=== PATIENT | male | born 1975 | race Caucasian/White ===

== ENCOUNTER 2020-06-26 10:30 | Outpatient (REF) | payer OTHER, SELFPAY ==
[2020-06-26 12:02] LABS: Estimated Average Glucose 203 mg/dL; Hemoglobin A1c % 8.7 %
[2020-06-26 12:20] LABS: Alanine Aminotransferase 31 U/L (0-40); Albumin Level 4.3 g/dL (3.5-5.0); Alkaline Phosphatase 74 U/L (39-117); Anion Gap 16 (12-20); Aspartate Amino Transferase 22 U/L (5-37); Bilirubin Total 1.2 mg/dL (0.0-1.0); Blood Urea Nitrogen 15 mg/dL (9-16); Calcium 9.1 mg/dL (8.4-10.2); Carbon Dioxide 30 mmol/L (22-29); Chloride 98 mmol/L (96-108); Estimated Glomerular Filt Rate > 60; Glucose Random 180 mg/dL (60-115); Potassium 4.5 mmol/l (3.3-5.1); Sodium 139 mmol/L (135-145); Total Protein 7.8 g/dL (6.5-8.0)
[2020-06-26 12:40] LABS: Vitamin D 25-OH Total 26.7 ng/mL (>30)
== END 2020-06-26 10:31 | disposition home or self-care (01) ==
LOC: HO.LAB 10:30
PROVIDERS: PCP Internal Medicine; Visit Provider Internal Medicine
DX: E11.65 Type 2 diabetes mellitus with hyperglycemia (principal); E78.5 Hyperlipidemia, unspecified; I10 Essential (primary) hypertension; E55.9 Vitamin D deficiency, unspecified; Z79.4 Long term (current) use of insulin
CPT/HCPCS: 80053; 82306; 83036

== ENCOUNTER → 2020-07-03 15:11 | Outpatient (BNVA) | payer OTHER, SELFPAY | PROVIDERS: PCP Internal Medicine; Visit Provider Internal Medicine Cardiovascular Disease | DX: Z76.89 Persons encountering health services in other specified circumstances (principal) ==

== ENCOUNTER 2020-07-08 14:08 | Outpatient (RCR) | payer OTHER, SELFPAY | END 2020-08-05 14:53 | disposition home or self-care (01) | LOC: HO.WCC 14:08 | PROVIDERS: Visit Provider Physician Assistant | DX: Z09 Encounter for follow-up examination after completed treatment for conditions other than malignant neoplasm (principal); E11.51 Type 2 diabetes mellitus with diabetic peripheral angiopathy without gangrene; E11.40 Type 2 diabetes mellitus with diabetic neuropathy, unspecified; I70.202 Unspecified atherosclerosis of native arteries of extremities, left leg; I87.2 Venous insufficiency (chronic) (peripheral); I10 Essential (primary) hypertension; I25.10 Atherosclerotic heart disease of native coronary artery without angina pectoris; Z87.891 Personal history of nicotine dependence; Z95.1 Presence of aortocoronary bypass graft | CPT/HCPCS: 99212; 99213; 99214 ==

== ENCOUNTER 2020-07-16 12:02 | Outpatient (REF) | payer OTHER, SELFPAY | END 2020-07-16 12:03 | disposition home or self-care (01) | LOC: HO.LAB 12:02 | PROVIDERS: Visit Provider Internal Medicine | DX: Z20.828 Contact with and (suspected) exposure to other viral communicable diseases (principal) | CPT/HCPCS: C9803; U0003 ==

== ENCOUNTER 2020-07-24 13:01 | Outpatient (REF) | payer OTHER, SELFPAY ==
--- NOTE | 2020-07-24 | US_ITS ---
EXAMINATION: DUPLEX DOPPLER ARTERIAL EVALUATION OF THE LEFT LOWER EXTREMITY CLINICAL INFORMATION: Left ankle ulceration COMPARISON: None TECHNIQUE: Real-time ultrasound and Doppler techniques (integrating B-mode 2D vascular images, Doppler spectral analysis and color flow Doppler imaging) were utilized to interrogate the left lower extremity. FINDINGS: Left common femoral artery has a triphasic waveform with peak systolic velocity of 111 cm/s. The proximal superficial femoral artery has a triphasic waveform with peak systolic velocity of 96 cm/s. Left profunda femoral artery has a triphasic waveform with peak systolic velocity of 79 cm/s. Mid superficial femoral artery has a triphasic waveform with peak systolic velocity of 100 cm/s. Distal superficial femoral artery has a triphasic waveform with peak systolic velocity of 82 cm/s. Popliteal artery has a triphasic waveform with peak systolic velocity of 84 cm/s. Peroneal artery has a triphasic waveform with peak systolic velocity of 63 cm/s. Distal posterior tibial artery has a triphasic waveform with peak systolic velocity of 109 cm/s. US/US arterial duplex LE LT IMPRESSION: Triphasic waveform throughout the left lower extremity without evidence of hemodynamically significant stenosis.
== END 2020-07-24 13:02 | disposition home or self-care (01) ==
LOC: HO.US 13:01
PROVIDERS: PCP Internal Medicine; Visit Provider Physician Assistant
DX: I70.243 Atherosclerosis of native arteries of left leg with ulceration of ankle (principal)
CPT/HCPCS: 93926

== ENCOUNTER 2020-08-18 13:03 | Outpatient (REF) | payer OTHER, SELFPAY ==
--- NOTE | 2020-08-18 | US_ITS ---
EXAMINATION: RIGHT and LEFT LOWER EXTREMITY VENOUS ULTRASOUND (Reflux Exam) CLINICAL INDICATION: Venous insufficiency. History of bilateral vein stripping. COMPARISON: None. TECHNIQUE: Color flow triplex imaging and compression Doppler was performed to evaluate both the deep and the superficial systems bilaterally. To evaluate the superficial system, the examination was performed in the upright position. Color-flow Doppler ultrasound and compression ultrasound were utilized. In addition, maneuvers were utilized to demonstrate reflux. FINDINGS: 1. DEEP VENOUS ULTRASOUND OF THE RIGHT LOWER EXTREMITY: Respiratory variation, normal compression and augmented flow are noted in the right common femoral vein as well as the right popliteal vein and there is no evidence of deep venous thrombosis at these locations. There is no evidence of reflux in the deep system in either the common femoral vein or the popliteal vein. There is no evidence of a Valverde's cyst. 2. SUPERFICIAL ULTRASOUND WITH DOPPLER OF RIGHT LOWER EXTREMITY: The right great saphenous vein at the saphenofemoral junction measures 8 mm, at the mid thigh 4 mm, at mid calf 2 mm and at the ankle measures 3 mm. The remainder of the right greater saphenous vein is not visualized. There is no reflux demonstrated in the right great saphenous vein. There is an accessory medial greater saphenous vein that measures 5 mm and does not demonstrate reflux. The right small saphenous vein measures 3 mm and shows no reflux. There is a chief fishery division in the mid calf that measures 2 mm and does not demonstrate reflux. There is a varicosity in the proximal thigh that measures 4 mm and does not demonstrate reflux. 3. DEEP VENOUS ULTRASOUND OF THE LEFT LOWER EXTREMITY: Respiratory variation, normal compression and augmented flow are noted in the left common femoral vein as well as the left popliteal vein and there is no evidence of deep venous thrombosis at these locations. There is no evidence of reflux in the deep system in either the common femoral vein or the popliteal vein. . There is no evidence of a Valverde's cyst. 4. SUPERFICIAL ULTRASOUND WITH DOPPLER OF LEFT LOWER EXTREMITY: Left great saphenous vein at the saphenofemoral junction measures 8 mm, at the mid thigh 5 mm, [id number] 3 mm, at mid calf 2 mm and at the ankle measures 2 mm. There is left greater saphenous vein reflux measuring 1.5 seconds at the mid calf. The left small saphenous vein measures 2-3 mm and shows no reflux. There is a chief fishery division in the mid thigh that measures 2 mm and does not demonstrate reflux. There is a chief fishery division in the proximal calf that measures 2 mm and demonstrates 2.8 seconds reflux. There is a varicosity in the proximal thigh that measures 3 mm and does not demonstrate reflux. There is a varicosity in the proximal calf that measures 5 mm and does not demonstrate reflux. US/US venous duplex LE BI IMPRESSION: 1. No evidence of reflux or thrombus in the common femoral veins or popliteal veins bilaterally. 2. Patient is post bilateral vein stripping. The greater saphenous vein is not visualized from the mid thigh to below the knee bilaterally. There is reflux in the left greater saphenous vein measuring 1.5 seconds in the mid calf. No right greater saphenous vein reflux seen. .
== END 2020-08-18 13:04 | disposition home or self-care (01) ==
LOC: HO.US 13:03
PROVIDERS: PCP Physician Assistant; Visit Provider Physician Assistant
DX: I87.2 Venous insufficiency (chronic) (peripheral) (principal)
CPT/HCPCS: 93970

== ENCOUNTER → 2020-09-25 13:07 | Outpatient (BNVA) | payer OTHER, SELFPAY | PROVIDERS: PCP Physician Assistant; Visit Provider Surgery Vascular Surgery ==

== ENCOUNTER 2020-09-30 07:37 | Outpatient (REF) | payer OTHER, SELFPAY ==
--- NOTE | ~2020-09-30 | XR_ITS ---
EXAMINATION: STERNUM AND LEFT SHOULDER X-RAYS CLINICAL INFORMATION: Pain COMPARISON: Previous chest x-ray May 2019 TECHNIQUE: 2 views of the sternum and 3 views of the left shoulder FINDINGS: Sternum: There are new plates and screws and cerclage wires in the sternum. Orthopedic hardware appears intact. This is new from previous chest x-ray May 2019. No fracture, dislocation or sternal lesion is appreciated by chest x-ray. There is question of soft tissue thickening over the inferior sternum. Left shoulder: Bone alignment is normal. No fracture or dislocation is seen. There may be a small subchondral cyst seen in the glenoid. The glenohumeral joint is otherwise normal. There is arthritis at the acromioclavicular joint with joint space narrowing and osteophyte formation. There may be faint soft tissue calcification adjacent to the proximal humerus/greater tuberosity region. XR/XR shoulder LT min 2V IMPRESSION: Sternum: New plates and screws and cerclage wires in the sternum. Question superficial soft tissue swelling overlying the inferior sternum. Left shoulder: Arthritis at the acromioclavicular joint. Subchondral cystic changes in the glenoid. Faint soft tissue calcification adjacent to the greater tuberosity.
--- NOTE | ~2020-09-30 | XR_ITS ---
EXAMINATION: STERNUM AND LEFT SHOULDER X-RAYS CLINICAL INFORMATION: Pain COMPARISON: Previous chest x-ray May 2019 TECHNIQUE: 2 views of the sternum and 3 views of the left shoulder FINDINGS: Sternum: There are new plates and screws and cerclage wires in the sternum. Orthopedic hardware appears intact. This is new from previous chest x-ray May 2019. No fracture, dislocation or sternal lesion is appreciated by chest x-ray. There is question of soft tissue thickening over the inferior sternum. Left shoulder: Bone alignment is normal. No fracture or dislocation is seen. There may be a small subchondral cyst seen in the glenoid. The glenohumeral joint is otherwise normal. There is arthritis at the acromioclavicular joint with joint space narrowing and osteophyte formation. There may be faint soft tissue calcification adjacent to the proximal humerus/greater tuberosity region. XR/XR sternum min 2V IMPRESSION: Sternum: New plates and screws and cerclage wires in the sternum. Question superficial soft tissue swelling overlying the inferior sternum. Left shoulder: Arthritis at the acromioclavicular joint. Subchondral cystic changes in the glenoid. Faint soft tissue calcification adjacent to the greater tuberosity.
[2020-09-30 08:04] LABS: Hematocrit 42.1 % (42-52); Hemoglobin 13.6 g/dl (14.0-18.0); Mean Corpuscular HGB Conc 32.3 g/dl (31.0-36.0); Mean Corpuscular Hemoglobin 27.5 pg (27.0-33.0); Mean Corpuscular Volume 85.2 fL (80-98); Mean Platelet Volume 10.1 fL (9.4-12.4); Platelet Count 330 X10*3/uL (160-400); Red Blood Count 4.94 X10*6/uL (4.60-5.80); Red Cell Distribution Width 13.6 % (11.0-16.0); White Blood Count 13.6 X10*3/uL (4.8-10.8)
[2020-09-30 08:08] LABS: Estimated Average Glucose 229 mg/dL; Hemoglobin A1c % 9.6 %
[2020-09-30 08:35] LABS: Alanine Aminotransferase 20 U/L (0-40); Albumin Level 4.3 g/dL (3.5-5.0); Alkaline Phosphatase 88 U/L (39-117); Anion Gap 14 (12-20); Aspartate Amino Transferase 14 U/L (5-37); Bilirubin Total 1.4 mg/dL (0.0-1.0); Blood Urea Nitrogen 15 mg/dL (9-16); Calcium 9.4 mg/dL (8.4-10.2); Carbon Dioxide 31 mmol/L (22-29); Chloride 99 mmol/L (96-108); Cholesterol 130 mg/dL; Estimated Glomerular Filt Rate > 60; Glucose Fasting 188 mg/dL (60-99); HDL Cholesterol 33 mg/dL; LDL Cholesterol Calculated 79 mg/dl; Potassium 4.5 mmol/L (3.3-5.1); Sodium 139 mmol/L (135-145); Total Protein 7.7 g/dL (6.5-8.0); Triglycerides 93 mg/dL
[2020-09-30 08:48] LABS: Prostate Specific Antigen Scr 0.17 ng/mL (<0.05-4.0)
[2020-09-30 08:49] LABS: Vitamin D 25-OH Total 21.5 ng/mL (>30)
== END 2020-09-30 07:38 | disposition home or self-care (01) ==
LOC: HO.LAB 07:37
PROVIDERS: Internal Medicine; PCP Physician Assistant; Visit Provider Physician Assistant
DX: R07.89 Other chest pain (principal); I10 Essential (primary) hypertension; E11.65 Type 2 diabetes mellitus with hyperglycemia; E55.9 Vitamin D deficiency, unspecified; M25.512 Pain in left shoulder; M77.8 Other enthesopathies, not elsewhere classified; Z12.5 Encounter for screening for malignant neoplasm of prostate; Z79.4 Long term (current) use of insulin
CPT/HCPCS: 36415; 71120; 73030; 80053; 80061; 82306; 83036; 84153; 84443; 85027

== ENCOUNTER → 2020-10-02 13:43 | Outpatient (BNVA) | payer OTHER, SELFPAY | PROVIDERS: PCP Physician Assistant; Visit Provider Internal Medicine | DX: E11.65 Type 2 diabetes mellitus with hyperglycemia (principal); E78.5 Hyperlipidemia, unspecified; E55.9 Vitamin D deficiency, unspecified; R17 Unspecified jaundice; I10 Essential (primary) hypertension; Z79.4 Long term (current) use of insulin; Z71.3 Dietary counseling and surveillance | CPT/HCPCS: 82947 ==

== ENCOUNTER 2020-10-09 14:13 | Outpatient (REF) | payer OTHER, SELFPAY ==
--- NOTE | ~2020-10-09 | CT_ITS ---
EXAMINATION: CT LOWER LEG WITH CONTRAST, LEFT CLINICAL INFORMATION: Nonpressure chronic ulcer of the unspecified lower leg. COMPARISON: Lower extremity venous ultrasound dated 08/18/2020. TECHNIQUE: Contiguous axial CT images of the left lower leg were obtained following the IV administration of 85 mL Omnipaque 350 contrast. Sagittal and coronal reformats were provided and reviewed. DLP: 378 mGy-cm FINDINGS: There are atherosclerotic calcifications throughout the tibial trunk and posterior tibial artery which normally opacifies with contrast. Additional right lower extremity arterial vessels appear opacified with contrast without evidence of occlusion. No abnormal soft tissue mass or fluid collection. Mild left lower extremity muscle atrophy without acute muscle or tendon injury. Evaluation limited on CT examination. No acute fracture or dislocation. No significant joint space narrowing or marginal osteophytes. No concerning lytic or blastic osseous lesion. CT/CT lower leg LT w con IMPRESSION: 1. Atherosclerotic calcifications throughout the tibial trunk and posterior tibial artery. The left lower extremity arterial structures normally opacified with contrast. 2. No abnormal soft tissue mass or fluid collection. 3. Mild muscle atrophy. 4. No acute osseous abnormality.
== END 2020-10-09 14:14 | disposition home or self-care (01) ==
LOC: HO.CT 14:13
PROVIDERS: Visit Provider Surgery Vascular Surgery
DX: L97.929 Non-pressure chronic ulcer of unspecified part of left lower leg with unspecified severity (principal)
CPT/HCPCS: 73701; Q9967

== ENCOUNTER → 2020-10-16 14:45 | Outpatient (BNVA) | payer OTHER, SELFPAY | PROVIDERS: PCP Physician Assistant; Visit Provider Surgery Vascular Surgery ==

== ENCOUNTER → 2020-10-30 12:56 | Outpatient (BNVA) | payer OTHER, SELFPAY | PROVIDERS: PCP Physician Assistant; Visit Provider Internal Medicine Cardiovascular Disease ==

== ENCOUNTER 2020-11-10 06:06 | Day surgery (SDC) | payer OTHER, SELFPAY ==
[2020-11-05 12:49] VITALS: BMI 45.1
[2020-11-10 06:24] VITALS: BP 101/68; PULSE 103; RESP 16; TEMP 36.7; O2SAT 98
[2020-11-10] MEDS: Lactated Ringers 1,000 ML 100 ML IVCONT (06:42)
[2020-11-10 06:44] LABS: Glucose, Whole Blood 102 mg/dL (60-115)
--- NOTE | 2020-11-10 07:48 | PC.NURSE ---
text md tolliver for scheduled surgery.
--- NOTE | 2020-11-10 07:49 | P.CONAN_ITS ---
HPI - Anesthesia Eval Consult details Narrative: 45 yo male patient here for debridement of skin left lower leg PMFSH Active Problems Active Problems: All Active Problems (Updated 10/02/20 @ 14:01 by Lisa Tanner DO) Lower extremity ulceration (Acute) CAD (coronary artery disease) (Acute) Left shoulder tendonitis (Acute) Non-healing wound of left lower extremity (Acute) Sternal pain (Acute) Elevated bilirubin (Acute) Decubitus ulcer of leg, stage 3 (Acute) Vitamin D deficiency (Acute) HLD (hyperlipidemia) (Acute) HTN (hypertension) (Acute) T2DM (type 2 diabetes mellitus) (Acute) Past Medical History Medical History (Updated 11/10/20 @ 07:54 by Cheryl Alcala) CAD (coronary artery disease) Decubitus ulcer of leg, stage 3 Elevated bilirubin HLD (hyperlipidemia) HTN (hypertension) [place]ON[place] on CPAP T2DM (type 2 diabetes mellitus) Vitamin D deficiency Family History Family History Father Diabetes CVD (cardiovascular disease) Mother CVD (cardiovascular disease) Diabetes Family history of problems with anesthesia: No Surgical History Surgical History Hx of cardiac catheterization Hx of coronary artery bypass graft History of Problems with Anesthesia: No Social History Social History Alcohol intake: current Alcohol intake frequency: holidays/special occasions only Smoking Status: Current some day smoker Tobacco Type: Cigarette Advance Directives Information Provided: No Current occupational status: employed Current occupation: [employer] Meds Allergies Allergy/AdvReac Type Severity Reaction Status Date / Time No Known Allergies Allergy Verified 10/16/20 14:45 [No Known Allergies*] Home Medications Medication Instructions Recorded Confirmed Last Taken Type aspirin 81 mg tablet,delayed 81 mg PO DAILY 06/26/20 11/05/20 11/09/20 History release atorvastatin 80 mg tablet 80 mg PO DAILY 06/26/20 11/05/20 Unknown History flash glucose scanning reader #1 ea 06/26/20 10/02/20 Unknown History flash glucose sensor #1 ea 06/26/20 10/02/20 Unknown History lisinopril 5 mg tablet 5 mg PO DAILY 06/26/20 11/05/20 Unknown History pen needle, diabetic 29 gauge x #100 ea 06/26/20 10/02/20 Unknown History 1/2 carvedilol 25 mg tablet 25 mg PO BID 07/03/20 11/05/20 11/10/20 05:00 History Exam Exam Date and Time: November 10, 2020 0749 Height,Weight and Vital Signs: Height 5 ft 11 in Weight 146.964 kg Last Vital Signs Temp 98.0 F 11/10/20 06:24 Pulse 103 H 11/10/20 06:24 Resp 16 11/10/20 06:24 BP 101/68 11/10/20 06:24 Pulse Ox 98 11/10/20 06:24 Pertinent Lab Results Pertinent Lab Results: Laboratory Tests 11/10/20 06:39 POC Glucose 102 Airway Mallampati Class: II TM Dist: >3cm Neck ROM: Full (Thick neck) Partial: Lower Heart: RRR Lungs: CTAB Assessment and Plan Assessment Anesthesia Assessment: Anesthesia Plan Discussed and Chart Reviewed Final Anesthetic Review NPO: Yes ASA Class: III Final Preanesthetic Review: No Changes in Pt Med Stat, Meds/Allgs Chart Reviewed, Consent Obtained/Reviewed and Anes Risks/Benef Reviewed Patient Risk: Intermediate Procedure Risk: Low Assessment/Block/Sedation in SS: Assess/Block/Sedation-SS Anesthetic Plan Anesthetic Plan: MAC: Disposition: Standard PACU
[2020-11-10 08:45] VITALS: BP 96/60; PULSE 93; RESP 12; TEMP 36.3; O2SAT 97
--- NOTE | 2020-11-10 08:48 | MHC.SHP ---
Pre-Procedural Eval Section B Chief Complaint: Left Lower Leg Open Wound Allergies: Allergies Allergy/AdvReac Type Severity Reaction Status Date / Time No Known Allergies Allergy Verified 10/16/20 14:45 [No Known Allergies*] Plan I have reviewed the history and physical and performed a pertinent physical examination on my patient. No changes have occurred unless specified.
--- NOTE | 2020-11-10 08:48 | W.PM.OPN ---
Operative Note Operative Note Date of Service: 11/10/20 Narrative: Operative note by [facility] Preoperative diagnosis: Nonhealing left leg ulcers x2 Postoperative diagnosis: Same Procedure: 1. Excisional debridement into muscle 2. Application of epi Fix x2 Surgeon:Taras Tam M.D. Insurance Office Manager: Mamie Anesthesia: Local with sedation Specimens: 1 Drains: None Estimated blood loss: Minimal Indications: Morbidly obese 45-year-old diabetic gentleman with nonhealing left lower extremity ulcers x2. It has been quite painful and sensitive for him to be debrided in the office. Of note this was the site of vein harvest for CABG for him. He now presents for operative intervention The patient has signed the informed consent after reviewing risks, complications, benefits, and alternatives previously discussed with the patient in my office. The patient was given the opportunity to ask any additional questions or voice any concerns. All questions were answered to the patient's satisfaction. Procedure in detail: Patient was brought to the operating room prior to which timeout was called for patient identification and site verification. Left leg was prepped and draped in the standard surgical fashion. Once this was done the area was infiltrated with local lidocaine and Marcaine 50 50 mix. Once this was accomplished using pickups and 15 blade excisional debridement was undertaken in to muscle. First we addressed the pretibial 1 just below the knee which was 5 cm x 3.5 cm x 0.1 cm. Once it was debrided it was 5.5 x 4 x 0.3 cm. Skin of fibrinous material and necrotic tissue was removed off the tissue bed into muscle. Hemostasis was achieved with electrocautery. Once this was accomplished a piece of epi Fix 2 x 3 cm was placed into the wound bed. Next we turned our attention to the ulcer just above the medial malleolus. This was a 3 x 2 cm x 0.1 cm ulcer. In a similar fashion excisional debridement was undertaken into muscle. Hemostasis was achieved with electrocautery. Post debridement measurement was 3.2 x 2.2 x 0.3 cm. Again a piece of epi Fix was placed into the wound bed. Once this was accomplished 0 form in a sterile dressing were applied. Along with a David wrap from foot to just below knee. At the end of the case sponge us been counts were correct. Patient tolerated the procedure well. Returned to recovery with stable vitals. This note is constructed using voice recognition software. While every effort has been made to ensure accuracy, cake knocker errors may have been included. Thank you for allowing me to participate in the care of your patient. Yours sincerely, Taras Tam MD, FACS, R.P.V.I.
[2020-11-10 08:50] VITALS: BP 102/61; PULSE 89; RESP 20; O2SAT 98
[2020-11-10] MEDS: Acetaminophen 325 MG TABLET 650 MG PO (08:50)
[2020-11-10] MEDS: oxyCODONE HCl Immed Release 5 MG TABLET PO (08:50)
[2020-11-10] MEDS: fentaNYL citrate/PF 100 MCG/2 ML VIAL 25 MCG IVPUSH ×2 (08:50→08:55)
[2020-11-10 08:55] VITALS: BP 92/68; PULSE 87; RESP 18; O2SAT 94
[2020-11-10 09:00] VITALS: BP 109/63; PULSE 86; RESP 16; O2SAT 97
[2020-11-10 09:15] VITALS: BP 105/75; PULSE 88; RESP 16; TEMP 36.3; O2SAT 98
== END 2020-11-10 10:20 | disposition home or self-care (01) ==
PROVIDERS: PCP Physician Assistant; Visit Provider Surgery Vascular Surgery
PROC: (CPT 11043; principal; 2020-11-10 07:30)
DX: E11.622 Type 2 diabetes mellitus with other skin ulcer (principal); L97.823 Non-pressure chronic ulcer of other part of left lower leg with necrosis of muscle; L97.329 Non-pressure chronic ulcer of left ankle with unspecified severity; E11.52 Type 2 diabetes mellitus with diabetic peripheral angiopathy with gangrene; Z79.4 Long term (current) use of insulin; E66.01 Morbid (severe) obesity due to excess calories; Z68.42 Body mass index [BMI] 45.0-49.9, adult; E78.5 Hyperlipidemia, unspecified; G47.33 Obstructive sleep apnea (adult) (pediatric); I25.10 Atherosclerotic heart disease of native coronary artery without angina pectoris; I10 Essential (primary) hypertension; Z79.82 Long term (current) use of aspirin; Z79.899 Other long term (current) drug therapy; F17.210 Nicotine dependence, cigarettes, uncomplicated
CPT/HCPCS: 11043; 82947; 88304; J0690; J2250; J2405; J3010; Q4186

== ENCOUNTER → 2020-11-13 14:57 | Outpatient (BNVA) | payer OTHER, SELFPAY | PROVIDERS: PCP Physician Assistant; Referring Provider Internal Medicine; Visit Provider Physician Assistant ==

== ENCOUNTER → 2020-11-25 15:10 | Outpatient (BNVA) | payer OTHER, SELFPAY | PROVIDERS: PCP Physician Assistant; Visit Provider Surgery Vascular Surgery ==

== ENCOUNTER 2020-11-26 16:32 | Outpatient (REF) | payer OTHER, SELFPAY ==
[2020-11-26 18:00] LABS: Glucose Urine UA NEG (NEG); Leukocyte Esterase Urine 2+ (NEG); Nitrite Urine POS (NEG); PH 5.5 (5.0-8.0); Specific Gravity - Urine 1.025 (1.005-1.025); UACC Culture Trigger YES; Urine Blood TRACE (NEG); Urine Ketones NEG (NEG); Urine Protein NEG (NEG-TRACE)
[2020-11-26 18:02] LABS: Appearance Urine HAZY; Color Urine YELLOW
[2020-11-26 18:11] LABS: Bacteria Urine 2+ /LPF; Sperm Urine NOTED; Squamous Epithelial Cell Urine 1+ /LPF
== END 2020-11-26 16:33 | disposition home or self-care (01) ==
LOC: HO.LAB 16:32
PROVIDERS: PCP Physician Assistant; Visit Provider Physician Assistant
DX: R30.0 Dysuria (principal)
CPT/HCPCS: 81001; 81003; 87086; 87088; 87186

== ENCOUNTER 2020-12-01 13:59 | Outpatient (RCR) | payer OTHER, SELFPAY | END 2021-01-21 11:41 | disposition home or self-care (01) | LOC: HO.WCC 13:59 | PROVIDERS: Visit Provider Physician Assistant | DX: E11.621 Type 2 diabetes mellitus with foot ulcer (principal); L97.322 Non-pressure chronic ulcer of left ankle with fat layer exposed; L97.822 Non-pressure chronic ulcer of other part of left lower leg with fat layer exposed; I87.312 Chronic venous hypertension (idiopathic) with ulcer of left lower extremity; E11.622 Type 2 diabetes mellitus with other skin ulcer; E11.40 Type 2 diabetes mellitus with diabetic neuropathy, unspecified; Z95.1 Presence of aortocoronary bypass graft; Z87.891 Personal history of nicotine dependence | CPT/HCPCS: 11042; 11045 ==

== ENCOUNTER → 2020-12-01 14:42 | Outpatient (BNVA) | payer OTHER, SELFPAY | PROVIDERS: PCP Physician Assistant; Visit Provider Internal Medicine ==

== ENCOUNTER 2021-01-06 17:46 | Outpatient (REF) | payer OTHER, SELFPAY | END 2021-01-06 17:47 | disposition home or self-care (01) | LOC: HO.LAB 17:46 | PROVIDERS: Visit Provider Nurse Practitioner Family | DX: R82.90 Unspecified abnormal findings in urine (principal); R50.9 Fever, unspecified | CPT/HCPCS: 87086; 87088; 87186 ==

== ENCOUNTER 2021-06-17 09:11 | Outpatient (REF) | payer OTHER, SELFPAY ==
[2021-06-17 10:15] LABS: Hematocrit 39.4 % (42.0-52.0); Hemoglobin 12.6 g/dl (14.0-18.0); Mean Corpuscular Hemoglobin 28.3 pg (27.0-33.0); Mean Corpuscular Volume 88.5 fL (80.0-98.0); Mean Platelet Volume 10.4 fL (9.4-12.4); Platelet Count 276 X10*3/uL (160-400); Red Blood Count 4.45 X10*6/uL (4.60-5.80); Red Cell Distribution Width 14.3 % (11.0-16.0); White Blood Count 10.2 X10*3/uL (4.8-10.8)
[2021-06-17 10:29] LABS: Estimated Average Glucose 240 mg/dL
[2021-06-17 10:41] LABS: Bilirubin Direct 0.4 mg/dL (0.0-0.5); Microalbum/Creatinine Ratio Ur 3.7 ug/mg cr
[2021-06-17 10:49] LABS: Alanine Aminotransferase 28 U/L (0-40); Albumin Level 3.9 g/dL (3.5-5.0); Alkaline Phosphatase 52 U/L (39-117); Anion Gap 12 (12-20); Aspartate Amino Transferase 16 U/L (5-37); Bilirubin Total 1.2 mg/dL (0.0-1.0); Blood Urea Nitrogen 17 mg/dL (9-16); Calcium 9.5 mg/dL (8.4-10.2); Carbon Dioxide 30 mmol/L (22-29); Chloride 102 mmol/L (96-108); Cholesterol 252 mg/dL; Estimated Glomerular Filt Rate > 60; Glucose Fasting 150 mg/dL (60-99); HDL Cholesterol 42 mg/dL; LDL Cholesterol Calculated 167 mg/dl; Potassium 4.4 mmol/L (3.3-5.1); Sodium 140 mmol/L (135-145); Triglycerides 219 mg/dL
[2021-06-17 11:01] LABS: TSH reflex Free T4 1.43 uIU/mL (0.32-4.0)
[2021-06-17 11:06] LABS: HBS Num1 0.03 mIU/mL (0-7.99); ~HepC Num1 0.07 S/CO (0.00-0.79); ~Hepatitis B Surface Antibody NONREACTIVE (Nonreactive); ~Hepatitis C Antibody Nonreactive (Nonreactive)
[2021-06-17 11:21] LABS: HBc Num1 0.07 S/CO (0.00-0.79); HBsAGNum1 0.22 S/CO (0.00-0.99); Hepatitis A Antibody IgM 0.17 Index (0-0.79); Hepatitis B Core Antibody Nonreactive (Nonreactive); Hepatitis B Surface Antigen Negative (Negative); ~Hepatitis A Antibody IgM Nonreactive (Nonreactive)
== END 2021-06-17 09:12 | disposition home or self-care (01) ==
LOC: HO.LAB 09:11
PROVIDERS: Internal Medicine; Physician Assistant; PCP Physician Assistant; Visit Provider Physician Assistant
DX: I25.10 Atherosclerotic heart disease of native coronary artery without angina pectoris (principal); R17 Unspecified jaundice; R79.89 Other specified abnormal findings of blood chemistry; E11.65 Type 2 diabetes mellitus with hyperglycemia; Z79.4 Long term (current) use of insulin
CPT/HCPCS: 36415; 80053; 80061; 82043; 82248; 83036; 84443; 85027; 86704; 86706; 86709; 86803; 87340

== ENCOUNTER → 2021-08-10 10:45 | Outpatient (BNVA) | payer OTHER, SELFPAY | PROVIDERS: PCP Physician Assistant; Visit Provider Internal Medicine | DX: E11.65 Type 2 diabetes mellitus with hyperglycemia (principal); Z79.4 Long term (current) use of insulin; Z79.84 Long term (current) use of oral hypoglycemic drugs | CPT/HCPCS: 82947 ==

== ENCOUNTER 2021-08-28 09:45 | Outpatient (REF) | payer OTHER, SELFPAY ==
[2021-08-28 10:28] LABS: Hematocrit 36.8 % (42.0-52.0); Mean Corpuscular HGB Conc 32.6 g/dl (31.0-36.0); Mean Corpuscular Hemoglobin 28.7 pg (27.0-33.0); Mean Platelet Volume 10.1 fL (9.4-12.4); Platelet Count 360 X10*3/uL (160-400); Red Blood Count 4.18 X10*6/uL (4.60-5.80); Red Cell Distribution Width 12.9 % (11.0-16.0); White Blood Count 9.8 X10*3/uL (4.8-10.8)
[2021-08-28 10:35] LABS: Estimated Average Glucose 212 mg/dL
[2021-08-28 11:01] LABS: Alanine Aminotransferase 35 U/L (0-40); Albumin Level 4.3 g/dL (3.5-5.0); Alkaline Phosphatase 57 U/L (39-117); Anion Gap 11 (12-20); Aspartate Amino Transferase 22 U/L (5-37); Bilirubin Total 0.8 mg/dL (0.0-1.0); Blood Urea Nitrogen 14 mg/dL (9-16); Calcium 9.7 mg/dL (8.4-10.2); Carbon Dioxide 30 mmol/L (22-29); Chloride 103 mmol/L (96-108); Cholesterol 104 mg/dL; Estimated Glomerular Filt Rate > 60; Glucose Fasting 166 mg/dL (60-99); HDL Cholesterol 31 mg/dL; LDL Cholesterol Calculated 59 mg/dl; Potassium 4.5 mmol/L (3.3-5.1); Sodium 139 mmol/L (135-145); Total Protein 7.4 g/dL (6.5-8.0); Triglycerides 73 mg/dL
[2021-08-28 11:22] LABS: Prostate Specific Antigen Scr 0.54 ng/mL (<0.05-4.0)
[2021-08-28 13:18] LABS: Creatinine Urine 217.46 mg/dL; Microalbum/Creatinine Ratio Ur 5.9 ug/mg cr
== END 2021-08-28 09:46 | disposition home or self-care (01) ==
LOC: HO.LAB 09:45
PROVIDERS: Absent Provider Internal Medicine; PCP Physician Assistant; Visit Provider Physician Assistant
DX: E11.65 Type 2 diabetes mellitus with hyperglycemia (principal); E78.5 Hyperlipidemia, unspecified; I10 Essential (primary) hypertension; Z79.4 Long term (current) use of insulin; Z12.5 Encounter for screening for malignant neoplasm of prostate
CPT/HCPCS: 36415; 80053; 80061; 82043; 83036; 84153; 85027

== ENCOUNTER → 2021-09-02 09:49 | Outpatient (BNVA) | payer OTHER, SELFPAY | PROVIDERS: PCP Physician Assistant; Visit Provider Internal Medicine | DX: E11.65 Type 2 diabetes mellitus with hyperglycemia (principal); E78.5 Hyperlipidemia, unspecified; E55.9 Vitamin D deficiency, unspecified; L97.929 Non-pressure chronic ulcer of unspecified part of left lower leg with unspecified severity; I10 Essential (primary) hypertension; Z79.4 Long term (current) use of insulin; R17 Unspecified jaundice | CPT/HCPCS: 82947 ==

== ENCOUNTER 2021-09-03 07:12 | Outpatient (REF) | payer OTHER, SELFPAY ==
[2021-09-03 09:25] LABS: Cortisol Random 9.2 ug/dL
[2021-09-03 10:35] LABS: Microalbum/Creatinine Ratio Ur 4.5 ug/mg cr
[2021-09-05 00:02] LABS: Adrenocorticotropic Hormone 31 pg/mL (6-50)
== END 2021-09-03 07:13 | disposition home or self-care (01) ==
LOC: HO.LAB 07:12
PROVIDERS: PCP Physician Assistant; Visit Provider Internal Medicine
DX: E11.65 Type 2 diabetes mellitus with hyperglycemia (principal); Z79.4 Long term (current) use of insulin
CPT/HCPCS: 36415; 82024; 82043; 82533

== ENCOUNTER → 2021-09-15 14:23 | Outpatient (BNVA) | payer OTHER, SELFPAY | PROVIDERS: PCP Physician Assistant; Referring Provider Physician Assistant; Visit Provider Nurse Practitioner Family | DX: I25.810 Atherosclerosis of coronary artery bypass graft(s) without angina pectoris (principal); I10 Essential (primary) hypertension; E78.5 Hyperlipidemia, unspecified; E11.65 Type 2 diabetes mellitus with hyperglycemia; G47.33 Obstructive sleep apnea (adult) (pediatric); Z79.4 Long term (current) use of insulin; Z79.899 Other long term (current) drug therapy; Z99.89 Dependence on other enabling machines and devices; Z95.1 Presence of aortocoronary bypass graft | CPT/HCPCS: 93005 ==

== ENCOUNTER 2021-09-17 08:59 | Outpatient (REF) | payer OTHER, SELFPAY ==
[2021-09-18 08:31] LABS: Cortisol 30 Minute 24.3 mcg/dL; Cortisol 30 Minute Time 1003; Cortisol 60 Minute 26.2 mcg/dL; Cortisol 60 Minute Time 3 1033; Cortisol Baseline 8.6 mcg/dL
[2021-09-18 20:35] LABS: Adrenocorticotropic Hormone 21 pg/mL (6-50)
== END 2021-09-17 09:00 | disposition home or self-care (01) ==
LOC: HO.MDS 08:59
PROVIDERS: PCP Physician Assistant; Visit Provider Internal Medicine
DX: E27.40 Unspecified adrenocortical insufficiency (principal)
CPT/HCPCS: 36415; 82024; 82533; 96374; J0834

== ENCOUNTER → 2021-12-10 15:01 | Outpatient (REF) | payer OTHER, SELFPAY ==
--- NOTE | 2021-12-10 15:04 | CA_ITS ---
Transthoracic Echocardiogram Patient (Last, First, Middle): Agustín Rawls M Gender: Male Date of : 1975 Age: 46 Procedure Date: 12/10/2021 Procedure Type: Transthoracic Echocardiogram Location: OP Height: 180.34 cm Weight: 149.69 kg BSA: 2.61 m2 Heart Rate: bpm BP: 120 / 80 mmHg Seamer Operator: ABHIJIT Ho MD: Carmina GANNON Sheriff: Pedro Pablo Park MD Symptoms: I42.9 - Cardiomyopathy, unspecified Study Quality: Technically Difficult/Contrast ECG Rhythm: Sinus Conclusions: - 1. [id number] LV systolic dysfunction with impaired relaxation filling pattern 2. Normal cardiac valvular Doppler 3. Normal RV systolic pressure 4. No gross pericardial effusion Findings Procedure Information Contrast agent, definity, is being given per protocol without apparent complications. Left Ventricle Normal left ventricular cavity size. There is mildly increased left ventricular wall thickness. The left ventricular systolic function is mild to moderately decreased. The visually estimated ejection fraction is between 40-45%. Spectral Doppler is indicative of an impaired relaxation filling pattern. E/E prime ratio is between 8 and 15 consistent with indeterminate filling pressures. Right Ventricle Normal right ventricular cavity size and systolic function. Atria The left atrium is normal in size. Interatrial shunt cannot be excluded. The right atrium is normal in size. Aortic Valve Normal aortic valve structure and function. There is no aortic valve stenosis. There is no aortic valve regurgitation. Mitral Valve Normal mitral valve structure and function. There is no mitral valve regurgitation. There is no mitral valve stenosis. Pulmonic Valve The pulmonic valve was not well visualized. Tricuspid Valve Likely normal tricuspid valve structure and function. There is trace tricuspid valve regurgitation. The right ventricular systolic pressure is normal. The right ventricular systolic pressure is 28 mmHg. Normal right atrial pressure. There is no evidence of pulmonary hypertension. Great Vessels All visible segments of the aorta are normal in size. The pulmonary artery was not well visualized. Venous The inferior vena cava is normal in size and collapses greater than 50% with inspiration. Pericardium/Pleural There is no evidence of pericardial effusion. Prior Study Comparison Changes noted compared to prior study dated: 07/30/2019. LV systolic function has improved mildly Measurements 2D Linear Measurements IVSd: 1.19 0.6-0.9/0.6-1.0 cm LVIDd: 4.86 3.9-5.3/4.2-5.9 cm LVIDd Index: 1.86 2.4-3.2/2.2-3.1 cm/m2 LVIDs: 3.39 2.0-3.6 cm LVPWd: 1.14 0.7-1.1 cm LA Diam: 3.90 2.7-3.8/3.0-4.0 cm LAIDs Index: 1.49 1.5-2.3 cm/m2 LV Mass: 267.18 67-162/88-224 g LV Mass Index: 102.37 43-95/49-115 g/m2 LVOT Diam: 2.50 3.0+(-)1.3 cm 2D Systolic Function EF 4C: 42.80 >55% EF 2C: 45.50 >55% EF BiP: 45.10 >55% Mitral Valve MV Pk E: 0.67 MV PK A: 0.69 MV Decel Time: 197.00 E/A: 1.00 E'Lateral: 8.38 E'Medial: 7.83 E/E' Med: 8.50 E/E' Lat: 8.00 PHT: 58.00 MVA PHT: 3.79 Decel Kern: 3.40 Aortic Valve AoV Pk Audie: 1.12 AoV Mn Audie: 0.77 AoV VTI: 0.19 AoV Pk Grad: 5.00 Aov Mn Grad: 3.00 MIO Cont.VTI: 3.43 LVOT LVOT Pk Audie: 0.69 LVOT Mn Audie: 0.52 LVOT VTI: 0.13 LVOT Pk Grad: 2.00 LVOT Mn Grad: 1.00 LVOT Diam: 2.50 LVOT Area: 4.91 Diastolic Function MV Pk E: 0.67 MV Pk A: 0.69 E/A: 1.00 E'Medial: 7.83 E/E' Med: 8.50 E' Laterial: 8.38 E/E' Lat: 8.00 Tricuspid Valve TR Pk Audie: 2.50 TR Pk Grad: 25.00 RA Press: 3.00 RVSP: 28.00 Great Vessels Aorta Sinus of Valsalva: 3.08 2.0-3.[address] Ridge: 2.62 1.7-3.4 cm Ao Asc: 3.20 2.1-3.4 cm Ao Arch: 2.90 Updated in Other Vendor System with Status of Final Pedro Pablo Park MD electronically signed on 12/11/2021 8:37:23 AM with status of Final
== END ==
LOC: HO.CARD 15:01
PROVIDERS: PCP Physician Assistant; Visit Provider Nurse Practitioner Family
DX: I42.9 Cardiomyopathy, unspecified (principal)
CPT/HCPCS: 93306; Q9957

== ENCOUNTER → 2021-12-17 15:00 | Outpatient (BNVA) | payer OTHER, SELFPAY | PROVIDERS: PCP Physician Assistant; Referring Provider Physician Assistant; Visit Provider Internal Medicine Cardiovascular Disease | DX: I42.9 Cardiomyopathy, unspecified (principal); I10 Essential (primary) hypertension; I20.8 Other forms of angina pectoris | CPT/HCPCS: 93005 ==

== ENCOUNTER 2022-01-22 07:55 | Outpatient (REF) | payer OTHER, SELFPAY ==
[2022-01-22 08:41] LABS: Estimated Average Glucose 232 mg/dL; Hemoglobin A1c % 9.7 %
[2022-01-22 08:48] LABS: Alanine Aminotransferase 42 U/L (0-40); Alkaline Phosphatase 71 U/L (39-117); Anion Gap 12 (12-20); Aspartate Amino Transferase 27 U/L (5-37); Bilirubin Total 0.3 mg/dL (0.0-1.0); Blood Urea Nitrogen 14 mg/dL (9-16); Calcium 9.4 mg/dL (8.4-10.2); Carbon Dioxide 30 mmol/L (22-29); Chloride 101 mmol/L (96-108); Estimated Glomerular Filt Rate > 60; Glucose Random 257 mg/dL (60-115); Potassium 4.4 mmol/L (3.3-5.1); Sodium 139 mmol/L (135-145); Total Protein 7.5 g/dL (6.5-8.0)
[2022-01-22 09:10] LABS: Vitamin D 25-OH Total 19.3 ng/mL (>30)
== END 2022-01-22 07:56 | disposition home or self-care (01) ==
LOC: HO.LAB 07:55
PROVIDERS: PCP Physician Assistant; Visit Provider Internal Medicine
DX: E11.65 Type 2 diabetes mellitus with hyperglycemia (principal); E55.9 Vitamin D deficiency, unspecified; Z79.4 Long term (current) use of insulin
CPT/HCPCS: 36415; 80053; 82306; 83036

== ENCOUNTER → 2022-01-25 08:13 | Outpatient (BNVA) | payer OTHER, SELFPAY | PROVIDERS: PCP Physician Assistant; Visit Provider Internal Medicine | DX: E11.65 Type 2 diabetes mellitus with hyperglycemia (principal); E11.622 Type 2 diabetes mellitus with other skin ulcer; L97.929 Non-pressure chronic ulcer of unspecified part of left lower leg with unspecified severity; E55.9 Vitamin D deficiency, unspecified; E78.5 Hyperlipidemia, unspecified; I10 Essential (primary) hypertension; R74.01 Elevation of levels of liver transaminase levels; E04.9 Nontoxic goiter, unspecified; Z79.4 Long term (current) use of insulin; Z79.84 Long term (current) use of oral hypoglycemic drugs | CPT/HCPCS: 82947 ==

== ENCOUNTER 2022-02-02 07:12 | Outpatient (REF) | payer OTHER, SELFPAY ==
[2022-02-02 08:11] LABS: Estimated Average Glucose 226 mg/dL; Hemoglobin A1c % 9.5 %
[2022-02-02 08:24] LABS: Alanine Aminotransferase 29 U/L (0-40); Alkaline Phosphatase 83 U/L (39-117); Anion Gap 12 (12-20); Aspartate Amino Transferase 17 U/L (5-37); Bilirubin Direct 0.4 mg/dL (0.0-0.5); Bilirubin Total 0.9 mg/dL (0.0-1.0); Blood Urea Nitrogen 15 mg/dL (9-16); Calcium 9.4 mg/dL (8.4-10.2); Carbon Dioxide 28 mmol/L (22-29); Chloride 102 mmol/L (96-108); Cholesterol 113 mg/dL; Estimated Glomerular Filt Rate > 60; Glucose Random 275 mg/dL (60-115); HDL Cholesterol 32 mg/dL; LDL Cholesterol Calculated 62 mg/dl; Potassium 4.3 mmol/L (3.3-5.1); Sodium 138 mmol/L (135-145); Total Protein 7.5 g/dL (6.5-8.0); Triglycerides 95 mg/dL
[2022-02-02 08:43] LABS: Vitamin D 25-OH Total 22.2 ng/mL (>30)
[2022-02-02 08:55] LABS: Creatinine Urine 72.55 mg/dL; Microalbumin Urine < 5.0 mg/L
[2022-02-02 11:42] LABS: Vitamin B12 369 pg/mL (200-900)
[2022-02-04 13:46] LABS: LDL Cholesterol Direct 71 mg/dL (<100)
== END 2022-02-02 07:13 | disposition home or self-care (01) ==
LOC: HO.LAB 07:12
PROVIDERS: PCP Physician Assistant; Visit Provider Internal Medicine
DX: E11.65 Type 2 diabetes mellitus with hyperglycemia (principal); E55.9 Vitamin D deficiency, unspecified; Z79.4 Long term (current) use of insulin
CPT/HCPCS: 36415; 80053; 80061; 82043; 82248; 82306; 82607; 83036; 83721

== ENCOUNTER 2022-02-22 11:23 | Outpatient (REF) | payer OTHER, SELFPAY ==
--- NOTE | ~2022-02-22 | US_ITS ---
EXAMINATION: US THYROID CLINICAL INFORMATION: Nontoxic goiter, unspecified. COMPARISON: None TECHNIQUE: Linear transducer grayscale and color Doppler examination with attention to the region of the thyroid. Exam is slightly limited due to patient body habitus. FINDINGS: SIZE: Measurements of the thyroid lobes and nodules are given in sagittal, anteroposterior and transverse dimensions respectively. Technically somewhat suboptimal study secondary to body habitus. Right Thyroid Lobe: 4.8 x 1.9 x 2.2 cm, volume 10.5 mL. Parenchyma: The gland echotexture is homogeneous. Thyroid vascularity is normal. Left Thyroid Lobe: 3.9 x 1.5 x 1.8 cm, volume 5.5 mL. Parenchyma: The gland echotexture is homogeneous. Thyroid vascularity is normal. Isthmus: 0.7 cm in maximum AP dimension. No focal thyroid nodule is seen. NODES: No lymphadenopathy is seen in the tissue surrounding the thyroid gland. US/US thyroid IMPRESSION: Prominent right lobe of the thyroid gland otherwise unremarkable exam.
== END 2022-02-22 11:24 | disposition home or self-care (01) ==
LOC: HO.HMGCX 11:23
PROVIDERS: PCP Physician Assistant; Visit Provider Internal Medicine
DX: E04.9 Nontoxic goiter, unspecified (principal)
CPT/HCPCS: 76536

== ENCOUNTER → 2022-06-14 14:55 | Outpatient (BNVA) | payer OTHER, SELFPAY | PROVIDERS: PCP Physician Assistant; Visit Provider Internal Medicine | DX: E11.65 Type 2 diabetes mellitus with hyperglycemia (principal); Z79.4 Long term (current) use of insulin; E78.5 Hyperlipidemia, unspecified; I10 Essential (primary) hypertension; L97.929 Non-pressure chronic ulcer of unspecified part of left lower leg with unspecified severity; E55.9 Vitamin D deficiency, unspecified | CPT/HCPCS: 82947; 83036 ==

== ENCOUNTER → 2022-09-16 14:52 | Outpatient (BNVA) | payer OTHER, SELFPAY | PROVIDERS: PCP Physician Assistant; Visit Provider Physician Assistant | DX: Z13.89 Encounter for screening for other disorder (principal) ==

== ENCOUNTER 2022-11-24 08:07 | Outpatient (REF) | payer OTHER, SELFPAY ==
[2022-11-24 09:28] LABS: Cholesterol 107 mg/dL; HDL Cholesterol 23 mg/dL; LDL Cholesterol Calculated 66 mg/dl; Triglycerides 91 mg/dL
== END 2022-11-24 08:08 | disposition home or self-care (01) ==
LOC: HO.LAB 08:07
PROVIDERS: PCP Physician Assistant; Visit Provider Physician Assistant
DX: I25.810 Atherosclerosis of coronary artery bypass graft(s) without angina pectoris (principal)
CPT/HCPCS: 36415; 80061

== ENCOUNTER → 2022-12-02 14:28 | Outpatient (BNVA) | payer OTHER, SELFPAY | PROVIDERS: PCP Physician Assistant; Referring Provider Physician Assistant; Visit Provider Nurse Practitioner Family | DX: I25.810 Atherosclerosis of coronary artery bypass graft(s) without angina pectoris (principal) | CPT/HCPCS: 93005 ==

== ENCOUNTER 2022-12-08 08:12 | Outpatient (REF) | payer OTHER, SELFPAY ==
[2022-12-08 09:20] LABS: Alanine Aminotransferase 89 U/L (0-40); Albumin Level 4.1 g/dL (3.5-5.0); Alkaline Phosphatase 81 U/L (39-117); Anion Gap 15 (12-20); Aspartate Amino Transferase 45 U/L (5-37); Blood Urea Nitrogen 13 mg/dL (9-16); Calcium 9.7 mg/dL (8.4-10.2); Carbon Dioxide 28 mmol/L (22-29); Chloride 101 mmol/L (96-108); Estimated Glomerular Filt Rate > 60; Glucose Random 148 mg/dL (60-115); Potassium 4.3 mmol/L (3.3-5.1); Sodium 140 mmol/L (135-145); Total Protein 7.5 g/dL (6.5-8.0)
== END 2022-12-08 08:13 | disposition home or self-care (01) ==
LOC: HO.LAB 08:12
PROVIDERS: Visit Provider Nurse Practitioner Family
DX: Z95.1 Presence of aortocoronary bypass graft (principal)
CPT/HCPCS: 36415; 80053

== ENCOUNTER 2022-12-22 07:09 | Outpatient (REF) | payer OTHER, SELFPAY ==
[2022-12-22 07:53] LABS: Estimated Average Glucose 163 mg/dL; Hemoglobin A1c % 7.3 %
[2022-12-22 08:04] LABS: Alanine Aminotransferase 64 U/L (0-40); Albumin Level 4.5 g/dL (3.5-5.0); Alkaline Phosphatase 74 U/L (39-117); Anion Gap 15 (12-20); Aspartate Amino Transferase 36 U/L (5-37); Bilirubin Total 1.7 mg/dL (0.0-1.0); Blood Urea Nitrogen 17 mg/dL (9-16); Calcium 9.9 mg/dL (8.4-10.2); Carbon Dioxide 28 mmol/L (22-29); Chloride 103 mmol/L (96-108); Estimated Glomerular Filt Rate > 60; Glucose Random 132 mg/dL (60-115); Potassium 4.4 mmol/L (3.3-5.1); Sodium 142 mmol/L (135-145)
== END 2022-12-22 07:10 | disposition home or self-care (01) ==
LOC: HO.LAB 07:09
PROVIDERS: Visit Provider Internal Medicine
DX: E11.65 Type 2 diabetes mellitus with hyperglycemia (principal); Z79.4 Long term (current) use of insulin
CPT/HCPCS: 36415; 80053; 83036